=== PATIENT | female | born 2000 | race Caucasian/White ===

== ENCOUNTER 2020-04-14 12:31 | Outpatient (REF) | payer OTHER, SELFPAY ==
--- NOTE | 2020-04-14 08:15 | PAPFT_PTH ---
PATIENT: STEVO ROSALES LOC: [facility] U#:[id number] AGE/SX: 19/F ROOM: RE04/14/[address]: Lillie Senior : 2000 BED: DIS: 04/14/2020 SPEC #: [id number] RECD: 04/17/20 12:58 STATUS: ALEXA LOGAN #: [id number] ZULEIKA: 04/14/20 08:[address]: Lillie Senior DEPT: [facility] Cytology RECD BY: Ayesha Hanson Tissues: 1 - CX/ENDOCX FOR PAP SMEARS Procedures: PAP THIN PREP/[facility] Screening Comments: [id number] (CHLAMYDIA/GC)
[2020-04-20 07:49] LABS: Chlamydia Result Negative (Negative); GC Result Negative (Negative)
== END 2020-04-14 12:32 | disposition home or self-care (01) ==
LOC: NCHCN 12:31
PROVIDERS: PCP Nurse Practitioner Family; Visit Provider Nurse Practitioner Family
DX: Z11.3 Encounter for screening for infections with a predominantly sexual mode of transmission (principal); Z12.4 Encounter for screening for malignant neoplasm of cervix
CPT/HCPCS: 87491; 87591; 88142